=== PATIENT | female | born 1950 | race Caucasian/White ===

== ENCOUNTER 2020-09-13 07:33 | Inpatient (IN) ==
[~2020-09-13 07:33] MED LIST: Buffered Lidocaine 1% SYRIN 1 ml INTRADERM ONE; Famotidine IV 10 MG/ML 2 ml VIAL (20 mg) IV ONE; Lactated Ringers 1000 ml BAG 1,000 ML IV SCH; Sodium Citrate/Citric Acid LIQ 15 ML UDC PO ONE
[2020-09-13] MEDS ORDERED: Famotidine IV 10 MG/ML 2 ml VIAL (20 mg) ONE (07:36)
[2020-09-13] MEDS ORDERED: Sodium Citrate/Citric Acid LIQ 15 ML UDC ONE (07:36)
[2020-09-13] MEDS ORDERED: Clindamycin 900 MG/D5W BAG 900 MG/50 ML BAG IVPB ONE (07:36)
[2020-09-13] MEDS ORDERED: Buffered Lidocaine 1% SYRIN 1 ml INTRADERM ONE (07:36)
[2020-09-13] MEDS ORDERED: Midazolam 2 mg/2 ml VIAL 1 mg/ml 2 ml VIAL (2 mg) ONE (07:43)
[2020-09-13] MEDS ORDERED: Ondansetron 4 mg VIAL 2 MG/ML 2 ml VIAL ONE (07:43)
[2020-09-13] MEDS ORDERED: Lidocaine 2% PF 5 ML VIAL ONE (07:43)
[2020-09-13] MEDS ORDERED: fentaNYL 100 mcg/2 ml 50 MCG/ML VIAL ONE (07:43)
[2020-09-13] MEDS ORDERED: Dexamethasone IV 4 MG/ML VIAL 1 ml VIAL ONE (07:43)
[2020-09-13] MEDS ORDERED: Propofol 10 MG/ML 20 ML BTL ONE ×3 (08:15→10:40)
[2020-09-13] MEDS ORDERED: Phenylephrine IV 10 MG/ML 1 ml VIAL ONE (08:18)
[2020-09-13] MEDS ORDERED: ROPIVACAINE 5 MG/ML 30 ML BTL (0.5%) ONE (08:31)
[2020-09-13] MEDS ORDERED: Lidocaine 1% MPF 5 ML VIAL ONE (08:31)
[2020-09-13] MEDS ORDERED: Naloxone 0.4 mg VIAL 0.4 mg/ml 1 ml VIAL IV PRN (10:25)
[2020-09-13] MEDS ORDERED: Ondansetron 4 mg VIAL 2 MG/ML 2 ml VIAL IV PRN ×2 (10:25→12:04)
[2020-09-13] MEDS ORDERED: fentaNYL 100 mcg/2 ml 50 MCG/ML VIAL IV PRN (10:25)
[2020-09-13] MEDS ORDERED: diPHENhydraMINE 25 mg TAB PO PRN (12:04)
[2020-09-13] MEDS ORDERED: Morphine 2 MG/ML SYRINGE IV PRN (12:04)
[2020-09-13] MEDS ORDERED: Ondansetron ODT 4 mg TAB 4 MG TAB PO PRN (12:04)
[2020-09-13] MEDS ORDERED: Magnesium Hydroxide LIQ 30 ML UDC PO PRN (12:04)
[2020-09-13] MEDS ORDERED: Lactulose 30 ml UDC PO PRN (12:04)
[2020-09-13] MEDS ORDERED: diPHENhydraMINE IV 50 MG/ML 1 ml VIAL (BENADRYL) IV PRN (12:04)
[2020-09-13] MEDS: Lactated Ringers 1000 ml BAG 1,000 ML IV SCH ×2 (13:00→23:14)
[2020-09-13] MEDS ORDERED: SIMVASTATIN 20 MG PO SCH (18:00)
[2020-09-13] MEDS: Clindamycin 600 MG/D5W BAG 600 MG/50 ML BAG IV SCH (18:23)
[2020-09-13] MEDS: Magnesium Hydroxide LIQ 30 ML UDC PO SCH (21:59)
[2020-09-13] MEDS ORDERED: NS 0.9% 500 ML BAG IV ONE (23:00)
[2020-09-14] MEDS: Clindamycin 600 MG/D5W BAG 600 MG/50 ML BAG IV SCH ×2 (02:13→10:30)
[2020-09-14 05:39] LABS: Hematocrit 38 % (35-47); Hemoglobin 12.6 g/dL (12.0-16.0); Mean Platelet Volume 7.4 fL (7.4-10.4); Platelet Count 250 10^3/uL (150-450)
[2020-09-14 05:54] LABS: BUN/Creatinine Ratio 19.4 (8-20); Calcium 8.9 mg/dL (8.6-10.3); EGFR African American 96.6 (>60); EGFR Non-African American 79.9 (>60); Potassium 4.6 mmol/L (3.5-5.0)
[2020-09-14] MEDS: Magnesium Hydroxide LIQ 30 ML UDC PO SCH (08:44)
[2020-09-14] MEDS ORDERED: Vitamin THERAPEUTIC TAB PO SCH (09:00)
[2020-09-14] MEDS ORDERED: Multivitamins/Minerals TAB PO SCH (09:00)
[2020-09-14 11:42] VITALS: BP 117/62
== END 2020-09-14 13:20 | disposition home or self-care (01) | DRG 470 ==
LOC: SSU 07:33 → OR 07:33 → OBSVTOIN 13:21
PROVIDERS: ADMIT Orthopaedic Surgery Adult Reconstructive Orthopaedic Surgery; ATTEND Orthopaedic Surgery Adult Reconstructive Orthopaedic Surgery